=== PATIENT | male | born 1955 | race Caucasian/White ===

== ENCOUNTER 2019-09-13 00:20 | Day surgery (SDC) | payer OTHER, SELFPAY ==
[2019-09-09 15:07] VITALS: BMI 26.2
--- NOTE | 2019-09-13 07:21 | PM.HPGS ---
History of Present Illness History of Present Illness Consent: Risks, benefits, and alternatives have been discussed and questions answered. Patient agrees to proceed with procedure. Chief complaint: Neoplasm Screening Narrative: Rajiv Rae is a 64 year old W male referred for screening colonoscopy secondary to history of colonic polyps. Patient states he had a colonoscopy 10 years ago which time polyps were removed. She had another colonoscopy approximately 5 years ago no polyps were seen. Patient is asymptomatic. There is no family history of colon cancer. Patient is asymptomatic. [facility] Past Medical History Medical History (Updated 09/13/19 @ 07:22 by Rigo Taylor MD) Dyslipidemia Family History Family History (Updated 10/13/17 @ 14:27 by DOCTOR UNKNOWN) Father Hypertension Family history of elevated blood lipids Mother Hypertension Family history of elevated blood lipids Social History Social History Smoking status: Never smoker Alcohol intake: current Meds Home Medications and Allergies Home Medications Medication Instructions Recorded Confirmed Type quinapril 10 mg tablet 10 mg PO DAILY #90 tablet 07/18/19 09/09/19 Rx simvastatin 10 mg tablet 10 mg PO DAILY #90 tablet 08/06/19 09/09/19 Rx krill oil 500 mg PO DAILY 09/09/19 09/09/19 History Allergies Allergy/AdvReac Type Severity Reaction Status Date / Time Sulfa (Sulfonamide Allergy Unknown Skin Verified 09/09/19 15:04 Antibiotics) Reaction Exam Const: Orientation/consciousness: patient oriented x3 Resp: Auscultation: clear to auscultation bilaterally Cardio: Rate: regular rate Rhythm: regular rhythm Heart sounds: no murmurs GI: GI Palp: Yes Soft to palpation, No Tenderness to palpation present (GI), Yes No hepatosplenomegaly present and No Palpable mass present Auscultation: normal bowel sounds Neuro: General: patient oriented x3 and no focal motor deficits Extrem: General: no pedal edema Assessment and Plan Additional Plan screening colonoscopy secondary history of colonic polyps
[2019-09-13] MEDS: LACTATED RINGERS 1,000 ML 150 ML IV CONT (07:50)
[2019-09-13 07:52] VITALS: BP 122/75; PULSE 82; RESP 20; TEMP 36.9; O2SAT 99; BMI 25.3
--- NOTE | 2019-09-13 07:52 | WPDANESEPPF ---
Anes - Initial Pre Proc Eval Procedure: Operation Date: 09/13/19 08:30 Proposed Procedures p Screening Colonoscopy - Rigo Taylor MD Date/Time: 09/13/19 07:52 Surgeon: Rigo Taylor MD Pre Op Diagnosis: Neoplasm Screening Patient Data Age: 64 Gender: M Height: 6 ft 3 in Weight: 95 kg Allergies Allergy/AdvReac Type Severity Reaction Status Date / Time Sulfa (Sulfonamide Allergy Unknown Skin Verified 09/13/19 07:51 Antibiotics) Reaction Home Medications Medication Instructions Recorded Confirmed Type quinapril 10 mg tablet 10 mg PO DAILY #90 tablet 07/18/19 09/09/19 Rx simvastatin 10 mg tablet 10 mg PO DAILY #90 tablet 08/06/19 09/09/19 Rx krill oil 500 mg PO DAILY 09/09/19 09/09/19 History Patient hx anesthesia problems: none Family hx anesthesia problems: none PMFSH Past Medical History Medical History (Updated 09/13/19 @ 07:53 by Giovany Bridges MD) Dyslipidemia HTN (hypertension) Hyperlipidemia Family History Family History Father Hypertension Family history of elevated blood lipids Mother Hypertension Family history of elevated blood lipids Social History Social History Smoking status: Never smoker Alcohol intake: current Anes - Eval Final PreProcedure Day of Procedure 09/13/19 07:52 Patient weight: overweight Heart: regular rate and rhythm Lungs: clear to auscultation Airway: Mallampati scale class II Neurological: alert and oriented ASA classification: II Emergent: no Anesthetic plan: proceed Anesthesia type and monitoring: general GIVS and standard monitoring Informed Consent: The patient's anesthetic plan and its attendant risks and benefits were discussed with the patient/family/POA. Questions were solicited and answers provided to the satisfaction of the patient/family/POA.
[2019-09-13 08:49] VITALS: BP 102/72; PULSE 71; RESP 20; O2SAT 98
[2019-09-13 08:59] VITALS: BP 106/70; PULSE 74; RESP 20; O2SAT 100
[2019-09-13 09:09] VITALS: BP 121/72; PULSE 72; RESP 21; O2SAT 99
== END 2019-09-13 09:27 | disposition home or self-care (01) ==
PROVIDERS: PCP Family Medicine; Visit Provider Internal Medicine Gastroenterology
PROC: 0DJD8ZZ Inspection of Lower Intestinal Tract, Via Natural or Artificial Opening Endoscopic (ICD-10-PCS; CPT 45378; principal; 2019-09-13 08:30)
DX: Z12.11 Encounter for screening for malignant neoplasm of colon (principal); D12.3 Benign neoplasm of transverse colon; D12.5 Benign neoplasm of sigmoid colon; K64.8 Other hemorrhoids; K57.30 Diverticulosis of large intestine without perforation or abscess without bleeding; I10 Essential (primary) hypertension; E78.5 Hyperlipidemia, unspecified
CPT/HCPCS: 45385; 45380; 45381; 88305; J2704; J7120

== ENCOUNTER → 2020-02-18 16:24 | Outpatient (CLI) | payer OTHER, SELFPAY ==
--- NOTE | ~2020-02-18 | XR_ITS ---
EXAMINATION: XR shoulder RT min 2V DATE: 02/18/2020 16:42 INDICATION: Unspecified injury of right shoulder. TECHNIQUE: 4 views of right shoulder were obtained. COMPARISON: None. FINDINGS: Bone alignment is normal. No fracture. There is mild osteoarthritis of glenohumeral joint a nd severe osteoarthritis of acromioclavicular joint. IMPRESSION: 1. Polyarticular osteoarthritis. Reviewed, dictated and finalized at location A.
== END ==
PROVIDERS: Visit Provider Family Medicine
DX: S49.90XA Unspecified injury of shoulder and upper arm, unspecified arm, initial encounter (principal); M19.011 Primary osteoarthritis, right shoulder
CPT/HCPCS: 73030

== ENCOUNTER → 2020-03-18 07:30 | Outpatient (CLI) | payer OTHER, SELFPAY ==
--- NOTE | ~2020-03-18 | MR_ITS ---
EXAMINATION: MR shoulder RT wo con DATE: 03/18/2020 08:29 INDICATION: Right shoulder pain TECHNIQUE: Magnetic resonance imaging (MRI) of the right shoulder was performed without intravenous c ontrast. Sequences included axial PD-weighted FS FSE, coronal oblique PD-weighted FS FSE, coronal obl ique T2-weighted FS FSE, sagittal PD-weighted FS FSE, and sagittal T1-weighted SE. COMPARISON: None. FINDINGS: Coracoacromial arch: The acromion undersurface is curved in morphology (type II). The coracoacromial ligament is normal. M oderate acromioclavicular osteoarthritis with small inferiorly directed osteophytes. Rotator cuff: Mild supraspinatus and infraspinatus tendinopathy. There is a small split tear at the conjoined porti on of the distalmost supraspinatus and infraspinatus tendons which appears to originate posteriorly a t the articular surface and extend anteriorly across the majority the thickness of the tendon extendi ng to near but not definitively involving the articular surface. The tear measures <2 mm and AP width . Minimal subscapularis tendinopathy without tear. The teres minor tendon is normal. Normal rotator c uff muscle bulk and signal. Biceps tendon, glenoid labrum and glenohumeral cartilage: Long head of the biceps tendon is normal. There is a relatively well-defined linear tear extending pe ripherally into the substance of the superior labrum as well as the posterior labrum both which maint ain a relatively normal triangular shape. There is less well-defined labral degeneration with irregul ar frayed margins of the posterior superior and anteroinferior labrum, the latter with associated 8 x 2 x 3 mm paravertebral cyst. There is also degenerative tearing of the inferior labrum which appears diminutive. Partial-thickness cartilage loss involving greater than 50% the cartilage thickness with chondral surface irregularity along the glenoid. Additional partial thickness cartilage loss and cho ndral surface irregularity at the humeral head most severe at the superomedial and along the inferior margin where it also involves greater than 50% the cartilage thickness. There is mild subarticular e romain and cystic change at the posterior superior margin of the glenoid. Small marginal osteophytes ar e present along the glenoid. Fluid: Physiologic amount of fluid in the glenohumeral joint and biceps tendon sheath. Synovitis at the deep subscapular recess. No loose osteochondral bodies. Small amount of fluid in the subacromial/subdelto id bursa consistent with mild bursitis. Bones: Small low signal intensity bone island at the humeral head. No fracture or abnormal marrow replacing process. IMPRESSION: 1. Moderate right glenohumeral osteoarthritis with moderate to high-grade chondromalacia and diffuse labral tear/degeneration. 2. Mild rotator cuff tendinopathy with small near full thickness split tear at the distal conjoined p ortion of the supraspinatus and infraspinatus tendons which does appear to involve the articular surf giovanny. 3. Moderate acromioclavicular osteoarthritis with mild underlying stress subacromial/subdeltoid bursi tis. Reviewed, dictated and finalized at location A. IMPRESSION: 1. Moderate right glenohumeral osteoarthritis with moderate to high-grade chond romalacia and diffuse labral tear/degeneration. 2. Mild rotator cuff tendinopathy with small near full thickness split tear at the distal conjoined portion of the supraspinatus and infraspinatus tendons whi ch does appear to involve the articular surface. 3. Moderate acromioclavicular osteoarthritis with mild underlying stress subacr omial/subdeltoid bursitis.
== END ==
PROVIDERS: PCP Family Medicine; Visit Provider Orthopaedic Surgery
DX: M25.511 Pain in right shoulder (principal); M19.011 Primary osteoarthritis, right shoulder; M75.111 Incomplete rotator cuff tear or rupture of right shoulder, not specified as traumatic; M75.51 Bursitis of right shoulder
CPT/HCPCS: 73221

== ENCOUNTER → 2020-09-11 02:21 | Outpatient (CLI) | payer OTHER, SELFPAY ==
[2020-09-11 21:58] LABS: SARS-CoV-2 RNA PCR Negative
== END ==
PROVIDERS: PCP Family Medicine; Visit Provider Internal Medicine Gastroenterology
DX: Z01.812 Encounter for preprocedural laboratory examination (principal); Z20.822 Contact with and (suspected) exposure to COVID-19
CPT/HCPCS: C9803; U0003; U0005

== ENCOUNTER 2020-09-14 00:31 | Day surgery (SDC) | payer OTHER, SELFPAY ==
[2020-08-25 15:13] VITALS: BMI 26.2
--- NOTE | 2020-09-11 09:34 | WPDANESEPPF ---
Anes - Initial Pre Proc Eval Procedure: Operation Date: 09/14/20 09:30 Proposed Procedures p Esophagogastroduodenoscopy&Screen Colon - Enio Plata MD Date/Time: 09/11/20 09:34 Surgeon: Enio Plata MD Pre Op Diagnosis: GERD, hx of colon polyps Patient Data Age: 65 Gender: M Height: 1.91 m Weight: 95 kg Allergies Allergy/AdvReac Type Severity Reaction Status Date / Time Sulfa (Sulfonamide Allergy Unknown Skin Verified 09/14/20 08:18 Antibiotics) Reaction Home Medications Medication Instructions Recorded Confirmed Type krill oil 500 mg PO DAILY 09/09/19 08/25/20 History omeprazole 20 mg capsule,delayed See Rx Instructions .ROUTE 05/06/20 08/25/20 Rx release .COMPLEX #90 capsule quinapril 10 mg tablet See Rx Instructions .ROUTE 05/06/20 08/25/20 Rx .COMPLEX #90 tablet simvastatin 10 mg tablet See Rx Instructions .ROUTE 05/06/20 08/25/20 Rx .COMPLEX #90 tablet naproxen 500 mg tablet 500 mg PO BID PRN #60 tablet 08/21/20 08/25/20 Rx Patient hx anesthesia problems: none Family hx anesthesia problems: none PMFSH Past Medical History Medical History (Updated 09/11/20 @ 09:35 by Hermelindo Kidd DO) Adenomatous colon polyp Dyslipidemia GERD (gastroesophageal reflux disease) HTN (hypertension) Hyperlipidemia Family History Family History Father Hypertension Family history of elevated blood lipids Mother Hypertension Family history of elevated blood lipids Social History Social History Smoking packs per day: 0.5 Smoking cigarettes per day: 10.0 Years smoked: 8 Smoking pack-years: 4.00 Smoking status: Former smoker Tobacco type: cigarettes Smoking end date: 06/23/83 Alcohol intake: current Drinks per week: 6 Substance use type: does not use Living arrangements: with family Spiritual care concerns: No Anes - Eval Final PreProcedure Day of Procedure 09/11/20 09:34 Patient weight: overweight Heart: regular rate and rhythm Lungs: clear to auscultation and normal air movement Airway: Mallampati scale class III Neurological: alert and oriented Last oral intake: >/= 8 hours ASA classification: II Emergent: no Anesthetic plan: proceed Anesthesia type and monitoring: general GIVS and standard monitoring Informed Consent: The patient's anesthetic plan and its attendant risks and benefits were discussed with the patient/family/POA. Questions were solicited and answers provided to the satisfaction of the patient/family/POA.
[2020-09-14 08:19] VITALS: BP 130/84; PULSE 78; RESP 18; TEMP 36.4; O2SAT 99
[2020-09-14] MEDS: LACTATED RINGERS 1,000 ML 150 ML IV CONT (08:26)
--- NOTE | 2020-09-14 08:47 | PM.HPGS ---
History of Present Illness History of Present Illness Consent: Risks, benefits, and alternatives have been discussed and questions answered. Patient agrees to proceed with procedure. Chief complaint: GERD, hx of colon polyps Narrative: Rajiv Rae is a 65 year old male with gerd relatively controlled with omeprazole, also needs a repeat colonoscopy after polyp removed in piece-meal fashion 1 year go. Review of Systems Constitutional: Constitutional: Denies headache(s) and Denies weakness Eyes: Eyes: Denies blurry vision ENT: Reports Normal hearing present, Denies headache(s) and Denies neck pain Cardiovascular: Cardiovascular: Denies chest pain and Denies dyspnea Respiratory: Respiratory: Denies dyspnea Gastrointestinal: Gastrointestinal: Reports no additional gastrointestinal complaints Genitourinary: Genitourinary: Denies dysuria Musculoskeletal: Musculoskeletal: Denies neck pain Integumentary/Breasts: Skin/Breast: Denies dry skin Neurologic: Reports Normal hearing present, Denies headache(s) and Denies weakness Psychiatric: Psychiatric: Denies anxiety Endocrine: Endocrine: Denies change in body appearance Hematologic/Lymphatic: Hematologic/Lymphatic: Denies easy bleeding Allergic/Immunologic: Allergic/Immunologic: Denies urticaria [facility] Past Medical History Medical History (Updated 09/11/20 @ 09:35 by Hermelindo Kidd DO) Adenomatous colon polyp Dyslipidemia GERD (gastroesophageal reflux disease) HTN (hypertension) Hyperlipidemia Family History Family History Father Hypertension Family history of elevated blood lipids Mother Hypertension Family history of elevated blood lipids Social History Social History Smoking packs per day: 0.5 Smoking cigarettes per day: 10.0 Years smoked: 8 Smoking pack-years: 4.00 Smoking status: Former smoker Tobacco type: cigarettes Smoking end date: 06/23/83 Alcohol intake: current Drinks per week: 6 Substance use type: does not use Living arrangements: with family Spiritual care concerns: No Meds Home Medications and Allergies Home Medications Medication Instructions Recorded Confirmed Type krill oil 500 mg PO DAILY 09/09/19 08/25/20 History omeprazole 20 mg capsule,delayed See Rx Instructions .ROUTE 05/06/20 08/25/20 Rx release .COMPLEX #90 capsule quinapril 10 mg tablet See Rx Instructions .ROUTE 05/06/20 08/25/20 Rx .COMPLEX #90 tablet simvastatin 10 mg tablet See Rx Instructions .ROUTE 05/06/20 08/25/20 Rx .COMPLEX #90 tablet naproxen 500 mg tablet 500 mg PO BID PRN #60 tablet 08/21/20 08/25/20 Rx Allergies Allergy/AdvReac Type Severity Reaction Status Date / Time Sulfa (Sulfonamide Allergy Unknown Skin Verified 09/14/20 08:18 Antibiotics) Reaction Vital Signs Vital Signs - 24 hr 09/14/20 08:19 Temperature 97.6 F Pulse Rate 78 Respiratory Rate 18 Blood Pressure 130/84 Pulse Oximetry 99 Exam Const: General: comfortable and no acute distress HENMT: General nose exam: Normal nares present Eyes: General: appearance normal, both eyes and all related structures Neck: Neck: no JVD Resp: Auscultation: clear to auscultation bilaterally Cardio: Rate: regular rate Rhythm: regular rhythm GI: Inspection: non-distended GI Palp: Yes Soft to palpation Skin: General skin exam: normal color Neuro: General: gait normal Speech: normal speech Extrem: General: normal to inspection Psych: Mental Status: mental status grossly normal Assessment and Plan Assessment and plan (1) GERD (gastroesophageal reflux disease): Code(s): K21.9 - Gastro-esophageal reflux disease without esophagitis Status: Acute Assessment and Plan: egd, never had one, on ppi (2) Adenomatous colon polyp: Code(s): D12.6 - Benign neoplasm of colon, unspecified
[2020-09-14 09:31] VITALS: BP 115/79; PULSE 65; RESP 16; O2SAT 97
[2020-09-14 09:41] VITALS: BP 128/87; PULSE 66; RESP 20; O2SAT 98
[2020-09-14 10:00] VITALS: BP 120/86; PULSE 57; RESP 15; O2SAT 100
== END 2020-09-14 10:06 | disposition home or self-care (01) ==
PROVIDERS: PCP Family Medicine; Visit Provider Internal Medicine Gastroenterology
PROC: 0DJ08ZZ Inspection of Upper Intestinal Tract, Via Natural or Artificial Opening Endoscopic (ICD-10-PCS; CPT 43235; principal; 2020-09-14 09:30)
DX: Z12.11 Encounter for screening for malignant neoplasm of colon (principal); K63.5 Polyp of colon; D12.2 Benign neoplasm of ascending colon; D12.3 Benign neoplasm of transverse colon; K21.9 Gastro-esophageal reflux disease without esophagitis; K44.9 Diaphragmatic hernia without obstruction or gangrene; K57.30 Diverticulosis of large intestine without perforation or abscess without bleeding; K64.8 Other hemorrhoids; E78.5 Hyperlipidemia, unspecified; I10 Essential (primary) hypertension; Z87.891 Personal history of nicotine dependence
CPT/HCPCS: 45385; 45380; 43239; 88305; C9803; J2001; J2704; J7120; U0003; U0005

== ENCOUNTER → 2020-10-26 12:08 | Outpatient (CLI) | payer OTHER, SELFPAY ==
--- NOTE | ~2020-10-26 | XR_ITS ---
EXAMINATION: XR elbow RT min 3V DATE: 10/26/2020 12:28 INDICATION: Right elbow pain and swelling TECHNIQUE: Anteroposterior, two oblique and lateral views of the right elbow were obtained. COMPARISON: None. FINDINGS: No traumatic malalignment. No fracture. Osteoarthritis with severe joint space narrowing at the radio capitellar articulation of the right elbow. A severe nonuniform joint space narrowing at the proximal radioulnar and ulnar trochlear articulations. Marginal osteophytes are also present. There are 3 cor ticated ossicles along the medial margin of the medial humeral condyle in the region of the medial co llateral ligament complex and common flexor tendon wad which could be either degenerative loose jagruti s, enthesopathic ossification or heterotopic ossicles related to chronic soft tissue injury. No right elbow joint effusion. Soft tissues are unremarkable. IMPRESSION: 1. 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 No acute osseous abnormality. 2. Several ossicles at the medial side of the elbow which could be either degenerative loose bodies, enthesopathic ossification or heterotopic ossicles related to chronic injury to the medial collateral ligament complex and/or flexor tendon wad. Reviewed, dictated and finalized at location B. IMPRESSION: 1. 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 No acute osseous abnormality. 2. Several ossicles at the medial side of the elbow which could be either degen erative loose bodies, enthesopathic ossification or heterotopic ossicles relate d to chronic injury to the medial collateral ligament complex and/or flexor ten don wad.
== END ==
PROVIDERS: PCP Family Medicine; Visit Provider Family Medicine
DX: M19.021 Primary osteoarthritis, right elbow (principal)
CPT/HCPCS: 73080

== ENCOUNTER 2021-09-03 02:54 | Day surgery (SDC) | payer OTHER, SELFPAY ==
[2021-08-23 14:50] VITALS: BMI 26.9
--- NOTE | 2021-09-02 13:02 | WPDANESEPPF ---
Anes - Initial Pre Proc Eval Procedure: Operation Date: 09/03/21 11:00 Proposed Procedures p Screening Colonoscopy - Enio Plata MD Date/Time: 09/02/21 13:02 Surgeon: Enio Plata MD Pre Op Diagnosis: hx of colon polyps, neoplasm screening Patient Data Age: 66 Gender: M Height: 1.88 m Weight: 95 kg Allergies Allergy/AdvReac Type Severity Reaction Status Date / Time Sulfa (Sulfonamide Allergy Unknown Skin Verified 06/28/21 09:56 Antibiotics) Reaction Home Medications Medication Instructions Recorded Confirmed Type krill oil 500 mg PO DAILY 09/09/19 09/03/21 History omeprazole 20 mg capsule,delayed See Rx Instructions .ROUTE 05/06/20 09/03/21 Rx release .COMPLEX #90 capsule quinapril 10 mg tablet See Rx Instructions .ROUTE 05/11/21 09/03/21 Rx .COMPLEX #90 tablet simvastatin 10 mg tablet See Rx Instructions .ROUTE 05/11/21 09/03/21 Rx .COMPLEX #90 tablet diclofenac sodium 75 mg 75 mg PO BID PRN #60 tablet 06/28/21 09/03/21 Rx tablet,delayed release sildenafil 100 mg tablet 100 mg PO DAILY PRN #10 tablet 06/28/21 09/03/21 Rx Patient hx anesthesia problems: none Family hx anesthesia problems: none Results Review: All pre-operative results and documents have been reviewed as part of the pre-operative evaluation. [facility] Past Medical History Medical History Adenomatous colon polyp Dyslipidemia GERD (gastroesophageal reflux disease) Hepatitis C antibody test negative (04/11/17) HTN (hypertension) Hyperlipidemia Family History Family History Father Hypertension Family history of elevated blood lipids Mother Hypertension Family history of elevated blood lipids Social History Social History Smoking packs per day: 0.5 Smoking cigarettes per day: 10.0 Years smoked: 8 Smoking pack-years: 4.00 Smoking status: Former smoker Tobacco type: cigars Additional smoking assessment comments: quit smoking 37 years ago Alcohol intake: current Drinks per week: 9 Alcohol use details: socially Substance use type: does not use Living arrangements: with family Gender identity (if verbalized by the patient): Male Spiritual care concerns: No Anes - Eval Final PreProcedure Day of Procedure 09/02/21 13:02 Patient weight: overweight Heart: regular rate and rhythm Lungs: clear to auscultation and normal air movement Airway: Mallampati scale class II Neurological: alert and oriented Last oral intake: >/= 8 hours ASA classification: II Emergent: no Anesthetic plan: proceed Anesthesia type and monitoring: general GIVS and standard monitoring Results Review: All pre-operative results and documents have been reviewed as part of the pre-operative evaluation. Informed Consent: The patient's anesthetic plan and its attendant risks and benefits were discussed with the patient/family/POA. Questions were solicited and answers provided to the satisfaction of the patient/family/POA.
[2021-09-03 09:54] VITALS: BP 125/92; PULSE 84; RESP 18; TEMP 36.7; O2SAT 100; BMI 26.1
[2021-09-03] MEDS: LACTATED RINGERS 1,000 ML 150 ML IV CONT (10:06)
--- NOTE | 2021-09-03 10:40 | PM.HPGS ---
History of Present Illness History of Present Illness Consent: Risks, benefits, and alternatives have been discussed and questions answered. Patient agrees to proceed with procedure. Chief complaint: hx of colon polyps, neoplasm screening Narrative: Rajiv Rae is a 66 year old male with previous piecemeal polypectomy in transverse in 2019, repeat colonoscopy 2020 showed remnant polyp Review of Systems Constitutional: Constitutional: Denies headache(s) and Denies weakness Eyes: Eyes: Denies blurry vision ENT: Reports Normal hearing present, Denies headache(s) and Denies neck pain Cardiovascular: Cardiovascular: Denies chest pain and Denies dyspnea Respiratory: Respiratory: Denies dyspnea Gastrointestinal: Gastrointestinal: Reports no additional gastrointestinal complaints Genitourinary: Genitourinary: Denies dysuria Musculoskeletal: Musculoskeletal: Denies neck pain Integumentary/Breasts: Skin/Breast: Denies dry skin Neurologic: Reports Normal hearing present, Denies headache(s) and Denies weakness Psychiatric: Psychiatric: Denies anxiety Endocrine: Endocrine: Denies change in body appearance Hematologic/Lymphatic: Hematologic/Lymphatic: Denies easy bleeding Allergic/Immunologic: Allergic/Immunologic: Denies urticaria PMFSH Past Medical History Medical History Adenomatous colon polyp Dyslipidemia GERD (gastroesophageal reflux disease) Hepatitis C antibody test negative (04/11/17) HTN (hypertension) Hyperlipidemia Family History Family History Father Hypertension Family history of elevated blood lipids Mother Hypertension Family history of elevated blood lipids Social History Social History Smoking packs per day: 0.5 Smoking cigarettes per day: 10.0 Years smoked: 8 Smoking pack-years: 4.00 Smoking status: Former smoker Tobacco type: cigars Additional smoking assessment comments: quit smoking 37 years ago Alcohol intake: current Drinks per week: 9 Alcohol use details: socially Substance use type: does not use Living arrangements: with family Gender identity (if verbalized by the patient): Male Spiritual care concerns: No Meds Home Medications and Allergies Home Medications Medication Instructions Recorded Confirmed Type krill oil 500 mg PO DAILY 09/09/19 09/03/21 History omeprazole 20 mg capsule,delayed See Rx Instructions .ROUTE 05/06/20 09/03/21 Rx release .COMPLEX #90 capsule quinapril 10 mg tablet See Rx Instructions .ROUTE 05/11/21 09/03/21 Rx .COMPLEX #90 tablet simvastatin 10 mg tablet See Rx Instructions .ROUTE 05/11/21 09/03/21 Rx .COMPLEX #90 tablet diclofenac sodium 75 mg 75 mg PO BID PRN #60 tablet 06/28/21 09/03/21 Rx tablet,delayed release sildenafil 100 mg tablet 100 mg PO DAILY PRN #10 tablet 06/28/21 09/03/21 Rx Allergies Allergy/AdvReac Type Severity Reaction Status Date / Time Sulfa (Sulfonamide Allergy Unknown Skin Verified 06/28/21 09:56 Antibiotics) Reaction Vital Signs Vital Signs - 24 hr 09/03/21 09:54 Temperature 98.0 F Pulse Rate 84 Respiratory Rate 18 Blood Pressure 125/92 H Pulse Oximetry 100 Exam Const: General: comfortable and no acute distress HENMT: General nose exam: Normal nares present Eyes: General: appearance normal, both eyes and all related structures Neck: Neck: no JVD Resp: Auscultation: clear to auscultation bilaterally Cardio: Rate: regular rate Rhythm: regular rhythm GI: Inspection: non-distended GI Palp: Yes Soft to palpation Skin: General skin exam: normal color Neuro: General: gait normal Speech: normal speech Extrem: General: normal to inspection Psych: Mental Status: mental status grossly normal Assessment and Plan Assessment and plan (1) Adenomatous colon polyp:
[2021-09-03 11:18] VITALS: BP 120/76; PULSE 87; RESP 18; O2SAT 98
[2021-09-03 11:28] VITALS: BP 117/72; PULSE 84; RESP 18; O2SAT 99
[2021-09-03 11:38] VITALS: BP 142/88; PULSE 60; RESP 18; O2SAT 99
== END 2021-09-03 12:00 | disposition home or self-care (01) ==
PROVIDERS: PCP Family Medicine; Visit Provider Internal Medicine Gastroenterology
PROC: 0DJD8ZZ Inspection of Lower Intestinal Tract, Via Natural or Artificial Opening Endoscopic (ICD-10-PCS; CPT 45378; principal; 2021-09-03 11:00)
DX: Z09 Encounter for follow-up examination after completed treatment for conditions other than malignant neoplasm (principal); D12.2 Benign neoplasm of ascending colon; D12.3 Benign neoplasm of transverse colon; K57.30 Diverticulosis of large intestine without perforation or abscess without bleeding; K64.8 Other hemorrhoids; K63.5 Polyp of colon; E78.5 Hyperlipidemia, unspecified; K21.9 Gastro-esophageal reflux disease without esophagitis; I10 Essential (primary) hypertension; Z87.891 Personal history of nicotine dependence
CPT/HCPCS: 45388; 45385; 88305; J2704; J7120

== ENCOUNTER 2022-09-16 01:44 | Day surgery (SDC) | payer OTHER, SELFPAY ==
[2022-09-02 13:18] VITALS: BMI 26.2
[2022-09-16 06:17] VITALS: BP 111/78; PULSE 79; RESP 16; TEMP 36.3; O2SAT 100
[2022-09-16] MEDS: LACTATED RINGERS 1,000 ML 150 ML IV CONT (06:27)
--- NOTE | 2022-09-16 07:22 | WPDANESEPPF ---
Anes - Initial Pre Proc Eval Procedure: Operation Date: 09/16/22 07:30 Proposed Procedures p Screening Colonoscopy - Enio Plata MD Date/Time: 09/16/22 07:22 Surgeon: Enio Plata MD Pre Op Diagnosis: Hx of colon polyp Patient Data Age: 67 Gender: M Height: 1.91 m Weight: 93.6 kg Last Vital Signs Temp 97.3 F L 09/16/22 06:17 Pulse 79 09/16/22 06:17 Resp 16 09/16/22 06:17 BP 111/78 09/16/22 06:17 Pulse Ox 100 09/16/22 06:17 O2 Del Method Room Air 09/16/22 06:17 Allergies Allergy/AdvReac Type Severity Reaction Status Date / Time Sulfa (Sulfonamide Allergy Unknown Skin Verified 09/16/22 06:16 Antibiotics) Reaction Home Medications Medication Instructions Recorded Confirmed Type krill oil 500 mg capsule 500 mg PO DAILY 09/09/19 09/02/22 History omeprazole 20 mg capsule,delayed See Rx Instructions .Route 02/08/22 09/02/22 Rx release .COMPLEX #90 caps sildenafil 100 mg tablet 100 mg PO DAILY PRN sexual 02/08/22 09/02/22 Rx activity #10 tabs simvastatin 10 mg tablet See Rx Instructions .Route 02/08/22 09/02/22 Rx .COMPLEX #90 tabs levothyroxine 25 mcg tablet 25 mcg PO DAILY #90 tabs 05/16/22 09/02/22 Rx lisinopril 10 mg tablet 10 mg PO DAILY #90 tabs 08/08/22 09/02/22 Rx Patient hx anesthesia problems: none Family hx anesthesia problems: none Results Review: All pre-operative results and documents have been reviewed as part of the pre-operative evaluation. [facility] Past Medical History Medical History Adenomatous colon polyp Dyslipidemia GERD (gastroesophageal reflux disease) Hepatitis C antibody test negative (04/11/17) HTN (hypertension) Hyperlipidemia Family History Family History Father Hypertension Family history of elevated blood lipids Mother Hypertension Family history of elevated blood lipids Social History Social History Smoking packs per day: 0.5 Smoking cigarettes per day: 10.0 Years smoked: 8 Smoking pack-years: 4.00 Smoking status: Former smoker Tobacco type: cigarettes Additional smoking assessment comments: quit smoking 37 years ago Alcohol intake: current Drinks per week: 6 Alcohol use details: socially Substance use type: does not use Lack of Transportation: No Lack of Food: Never True Current Housing: I Have Housing Concerned About Future Housing: No Difficulty Paying Gas/Electric Bills: No Difficulty Paying for Meds: No Currently Unemployed: No Education: High School Diploma/GED Difficulty w/ Childcare or Family Care: No Living arrangements: with family Gender identity (if verbalized by the patient): Male Spiritual care concerns: No Anes - Eval Final PreProcedure Day of Procedure 09/16/22 07:22 Patient weight: obese Heart: regular rate and rhythm Lungs: clear to auscultation Neurological: alert and oriented Last oral intake: >/= 8 hours Emergent: no Anesthetic plan: proceed Anesthesia type and monitoring: general GIVS and standard monitoring Results Review: All pre-operative results and documents have been reviewed as part of the pre-operative evaluation. Informed Consent: The patient's anesthetic plan and its attendant risks and benefits were discussed with the patient/family/POA. Questions were solicited and answers provided to the satisfaction of the patient/family/POA.
--- NOTE | 2022-09-16 07:25 | PM.HPGS ---
History of Present Illness History of Present Illness Consent: Risks, benefits, and alternatives have been discussed and questions answered. Patient agrees to proceed with procedure. Chief complaint: Hx of colon polyp Narrative: Rajiv Rae is a 67 year old male previous piecemeal polypectomy in transverse in 2019, repeat colonoscopy 2020 and then 2021 showed remnant polyp Review of Systems Constitutional: Constitutional: Denies headache(s) and Denies weakness Eyes: Eyes: Denies blurry vision ENT: Reports Normal hearing present, Denies headache(s) and Denies neck pain Cardiovascular: Cardiovascular: Denies chest pain and Denies dyspnea Respiratory: Respiratory: Denies dyspnea Gastrointestinal: Gastrointestinal: Reports no additional gastrointestinal complaints Genitourinary: Genitourinary: Denies dysuria Musculoskeletal: Musculoskeletal: Denies neck pain Integumentary/Breasts: Skin/Breast: Denies dry skin Neurologic: Reports Normal hearing present, Denies headache(s) and Denies weakness Psychiatric: Psychiatric: Denies anxiety Endocrine: Endocrine: Denies change in body appearance Hematologic/Lymphatic: Hematologic/Lymphatic: Denies easy bleeding Allergic/Immunologic: Allergic/Immunologic: Denies urticaria PMFSH Past Medical History Medical History Adenomatous colon polyp Dyslipidemia GERD (gastroesophageal reflux disease) Hepatitis C antibody test negative (04/11/17) HTN (hypertension) Hyperlipidemia Family History Family History Father Hypertension Family history of elevated blood lipids Mother Hypertension Family history of elevated blood lipids Social History Social History Smoking packs per day: 0.5 Smoking cigarettes per day: 10.0 Years smoked: 8 Smoking pack-years: 4.00 Smoking status: Former smoker Tobacco type: cigarettes Additional smoking assessment comments: quit smoking 37 years ago Alcohol intake: current Drinks per week: 6 Alcohol use details: socially Substance use type: does not use Lack of Transportation: No Lack of Food: Never True Current Housing: I Have Housing Concerned About Future Housing: No Difficulty Paying Gas/Electric Bills: No Difficulty Paying for Meds: No Currently Unemployed: No Education: High School Diploma/GED Difficulty w/ Childcare or Family Care: No Living arrangements: with family Gender identity (if verbalized by the patient): Male Spiritual care concerns: No Meds Home Medications and Allergies Home Medications Medication Instructions Recorded Confirmed Type krill oil 500 mg capsule 500 mg PO DAILY 09/09/19 09/02/22 History omeprazole 20 mg capsule,delayed See Rx Instructions .Route 02/08/22 09/02/22 Rx release .COMPLEX #90 caps sildenafil 100 mg tablet 100 mg PO DAILY PRN sexual 02/08/22 09/02/22 Rx activity #10 tabs simvastatin 10 mg tablet See Rx Instructions .Route 02/08/22 09/02/22 Rx .COMPLEX #90 tabs levothyroxine 25 mcg tablet 25 mcg PO DAILY #90 tabs 05/16/22 09/02/22 Rx lisinopril 10 mg tablet 10 mg PO DAILY #90 tabs 08/08/22 09/02/22 Rx Allergies Allergy/AdvReac Type Severity Reaction Status Date / Time Sulfa (Sulfonamide Allergy Unknown Skin Verified 09/16/22 06:16 Antibiotics) Reaction Vital Signs Vital Signs - 24 hr 09/16/22 06:17 Temperature 97.3 F L Pulse Rate 79 Respiratory Rate 16 Blood Pressure 111/78 Pulse Oximetry 100 Oxygen Delivery Room Air Exam Const: General: comfortable and no acute distress HENMT: Face/Nose/Sinus: Normal nares present Eyes: General: appearance normal, both eyes and all related structures Neck: Neck: no JVD Resp: Auscultation: clear to auscultation bilaterally Cardio: Rate: regular rate Rhythm: regular rhythm GI: Inspection: non-dist
[2022-09-16 07:46] VITALS: BP 100/67; PULSE 70; RESP 19; O2SAT 100
[2022-09-16 07:56] VITALS: BP 110/80; PULSE 63; RESP 22; O2SAT 100
[2022-09-16 08:06] VITALS: BP 110/79; PULSE 58; RESP 13; O2SAT 100
== END 2022-09-16 08:10 | disposition home or self-care (01) ==
PROVIDERS: PCP Family Medicine; Visit Provider Internal Medicine Gastroenterology
PROC: 0DJD8ZZ Inspection of Lower Intestinal Tract, Via Natural or Artificial Opening Endoscopic (ICD-10-PCS; CPT 45378; principal; 2022-09-16 07:30)
DX: Z09 Encounter for follow-up examination after completed treatment for conditions other than malignant neoplasm (principal); D12.3 Benign neoplasm of transverse colon; K57.30 Diverticulosis of large intestine without perforation or abscess without bleeding; K64.8 Other hemorrhoids; I10 Essential (primary) hypertension; E78.5 Hyperlipidemia, unspecified; K21.9 Gastro-esophageal reflux disease without esophagitis; Z87.891 Personal history of nicotine dependence
CPT/HCPCS: 45385; 88305; J2704; J7120

== ENCOUNTER 2023-05-31 08:33 | Outpatient (CLI) | payer OTHER, SELFPAY ==
--- NOTE | ~2023-05-31 | XR_ITS ---
Left wrist Technique: PA, oblique, lateral, and ulnar deviation views were obtained. Clinical History: Ulnar nerve lesion Findings: No acute fracture or dislocation is seen. Suggestion of chronic, nonunited fracture of the scaphoid waist. There is mild degenerative change of the scaphoid articulations. Remaining joint spac es are preserved. Soft tissues are unremarkable. 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 No degenerative changes of th e STT indications. No definite acute fracture or dislocation seen. Reviewed, dictated and finalized at location M. 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 No dege nerative changes of the STT indications. No definite acute fracture or dislocation seen.
--- NOTE | ~2023-05-31 | XR_ITS ---
Left elbow Technique: AP, oblique, and lateral views were obtained. Clinical History: Paresthesia Findings: No acute fracture or dislocation is seen. Osseous alignment is anatomic. Joint spaces are p reserved. There is minimal spurring of the coronoid process of the ulna. There is no displacement of the fat pads, and soft tissues are unremarkable. Impression: Minimal spurring of the coronoid process of the ulna. Reviewed, dictated and finalized at location M. EMBRYOLOGIST Impression: Minimal spurring of the coronoid process of the ulna.
== END 2023-05-31 08:34 | disposition home or self-care (01) ==
PROVIDERS: PCP Family Medicine; Visit Provider Plastic Surgery
DX: G56.02 Carpal tunnel syndrome, left upper limb (principal); G56.22 Lesion of ulnar nerve, left upper limb; M25.722 Osteophyte, left elbow
CPT/HCPCS: 73080; 73110

== ENCOUNTER 2023-06-26 08:49 | Outpatient (CLI) | payer OTHER, SELFPAY ==
--- NOTE | 2023-06-26 09:30 | NEURO_ITS ---
Impression: # Patient reports a history of paresthesias in left hand. # Left, mild Carpal Tunnel Syndrome. # Normal needle/EMG exam. # Clinical correlation recommended. Nerve Conduction Studies Anti Sensory Summary Table Stim Site NR Peak (ms) P-T Amp (?V) Site1 Site2 Delta-P (ms) Dist (cm) Noam (m/s) Left Median Anti Sensory (2-3nd Digit) Wrist 4.8 22.3 Wrist 2-3nd Digit 4.8 14.0 29 Wrist 4.8 26.2 Wrist 2-3nd Digit 4.8 14.0 29 Left Radial Anti Sensory (Base 1st Digit) Wrist 1.9 23.1 Wrist Base 1st Digit 1.9 0.0 Left Ulnar Anti Sensory (5th Digit) Wrist 2.5 42.2 Wrist 5th Digit 2.5 14.0 56 Motor Summary Table Stim Site NR Onset (ms) O-P Amp (mV) Site1 Site2 Delta-0 (ms) Dist (cm) Noam (m/s) Left Median Motor (Abd Poll Brev) Wrist 4.1 4.7 Elbow Wrist 5.3 26.0 49 Elbow 9.4 4.0 Left Ulnar Motor (Abd Dig Minimi) Wrist 2.6 6.1 A Elbow Wrist 6.2 32.0 52 A Elbow 8.8 4.9 B Elbow Wrist 4.1 22.0 54 B Elbow 6.7 5.1 F Wave Studies NR F-Lat (ms) L-R F-Lat (ms) Left Median (Mrkrs) (Abd Poll Brev) 32.19 Left Ulnar (Mrkrs) (Abd Dig Min) 33.03 EMG Side Muscle Nerve Root Ins Act Fibs Amp Dur Recrt Comment Left 1stDorInt Ulnar C8-T1 Nml Nml Nml Nml Nml Left Ext Indicis Radial (Post Int) C7-8 Nml Nml Nml Nml Nml Left Ext Digitorum Radial (Post Int) C7-8 Nml Nml Nml Nml Nml Left BrachioRad Radial C5-6 Nml Nml Nml Nml Nml Left PronatorTeres Median C6-7 Nml Nml Nml Nml Nml Left Abd Poll Brev Median C8-T1 Nml Nml Nml Nml Nml MTDD
== END 2023-06-26 08:50 | disposition home or self-care (01) ==
PROVIDERS: PCP Family Medicine; Visit Provider Plastic Surgery
DX: G56.02 Carpal tunnel syndrome, left upper limb (principal)
CPT/HCPCS: 95886; 95909

== ENCOUNTER 2023-08-28 09:44 | Outpatient (CLI) | payer OTHER, SELFPAY ==
--- NOTE | 2023-08-28 09:51 | ECG_ITS ---
Measurements Intervals [place] Rate: 69 P: 49 LA: 177 QRS: -17 QRSD: 96 T: 30 QT: 381 QTc: 410 Interpretive Statements SINUS RHYTHM NORMAL ELECTROCARDIOGRAM NO PREVIOUS ECG AVAILABLE FOR COMPARISON Electronically Signed On 08-28-2023 16:50:33 PROFESSOR OF PHYSICAL EDUCATION by Andrez Cantu M.D.
== END 2023-08-28 09:45 | disposition home or self-care (01) ==
LOC: ANHCARD 09:47
PROVIDERS: PCP Family Medicine; Visit Provider Student in an Organized Health Care Education/Training Program
DX: I10 Essential (primary) hypertension (principal); Z01.818 Encounter for other preprocedural examination
CPT/HCPCS: 93005

== ENCOUNTER 2023-08-31 06:17 | Day surgery (SDC) | payer OTHER, SELFPAY ==
--- NOTE | 2023-08-30 11:41 | WPDANESEPPF ---
Anes - Initial Pre Proc Eval Procedure: Operation Date: 08/31/23 08:00 Proposed Procedures p Left Endoscopic Carpal Tunnel Release, Possible Open Carpal Tunnel Release - Lucy Arizmendi MD Date/Time: 08/30/23 11:41 Surgeon: Lucy Arizmendi MD Pre Op Diagnosis: Carpal Tunnel Syndrome Left Wrist Patient Data Age: 68 Gender: M Height: 1.88 m Weight: 98.88 kg Allergies Allergy/AdvReac Type Severity Reaction Status Date / Time Sulfa (Sulfonamide Allergy Unknown Rash Verified 08/31/23 06:48 Antibiotics) Home Medications Medication Instructions Recorded Confirmed Type krill oil 500 mg capsule 500 mg PO DAILY 09/09/19 08/31/23 History lisinopril 10 mg tablet 10 mg PO DAILY #90 tabs 01/09/23 08/31/23 Rx sildenafil 100 mg tablet 100 mg PO DAILY PRN sexual 04/20/23 08/31/23 Rx activity #18 tabs levothyroxine 50 mcg tablet 50 mcg PO DAILY #90 tabs 05/19/23 08/31/23 Rx omeprazole 20 mg capsule,delayed See Rx Instructions .Route 06/26/23 08/31/23 Rx release .COMPLEX #90 caps simvastatin 10 mg tablet See Rx Instructions .Route 06/26/23 08/31/23 Rx .COMPLEX #90 tabs naproxen 500 mg tablet See Rx Instructions .Route 08/14/23 08/31/23 Rx .COMPLEX #90 tabs tramadol 50 mg tablet 50 mg PO Q6H PRN pain #10 tabs 08/31/23 Rx Patient hx anesthesia problems: none Family hx anesthesia problems: none Results Review: All pre-operative results and documents have been reviewed as part of the pre-operative evaluation. [facility] Past Medical History Medical History Adenomatous colon polyp Dyslipidemia GERD (gastroesophageal reflux disease) Hepatitis C antibody test negative (04/11/17) HTN (hypertension) Hyperlipidemia Family History Family History Father Hypertension Family history of elevated blood lipids Mother Hypertension Family history of elevated blood lipids Social History Social History Smoking packs per day: 0.5 Smoking cigarettes per day: 10.0 Years smoked: 8 Smoking pack-years: 4.00 Smoking status: Former smoker Tobacco type: cigarettes Additional smoking assessment comments: quit smoking 37 years ago Alcohol intake: current Drinks per week: 10 Alcohol use details: drinks 3-4 days per week, 3-4 drinkls on those days Substance use: never Substance use type: does not use Lack of Transportation: No Lack of Food: Never True Current Housing: I Have Housing Concerned About Future Housing: No Difficulty Paying Gas/Electric Bills: No Difficulty Paying for Meds: No Currently Unemployed: No Education: High School Diploma/GED Difficulty w/ Childcare or Family Care: No Living arrangements: with family Gender identity (if verbalized by the patient): Male Spiritual care concerns: No Anes - Eval Final PreProcedure Day of Procedure 08/30/23 11:41 Patient weight: overweight Heart: regular rate and rhythm Lungs: decreased breath sounds Airway: Mallampati scale class II Neurological: alert and oriented Last oral intake: >/= 8 hours ASA classification: III Emergent: no Anesthetic plan: proceed Anesthesia type and monitoring: general GIVS and standard monitoring Results Review: All pre-operative results and documents have been reviewed as part of the pre-operative evaluation. Informed Consent: The patient's anesthetic plan and its attendant risks and benefits were discussed with the patient/family/POA. Questions were solicited and answers provided to the satisfaction of the patient/family/POA.
--- NOTE | 2023-08-31 06:58 | WPDHPUPDATE1 ---
History and Physical Update Update Date/Time: 08/31/23 06:58 Patient seen and examined in pre-operative holding area. No interval change in medical history or symptoms. Patient recalls previous discussion of benefits and alternatives to procedure. Continues to desire to proceed with left endoscopic possible open carpal tunnel release. Reviewed procedure, post-op expectations and risks including but not limited to bleeding, infection, injury to tendon/nerve/vessel, decreased hand function, stiffness, RSD, no change or worsening of symptoms. I discussed the possible use of assistants and their participation in the case. Patient stated understanding and signed the consent form wishing to proceed.
--- NOTE | 2023-08-31 06:59 | W.PM.PROC2 ---
Procedure Note - Detailed Date of Procedure 08/31/23 Pre-op Diagnosis Carpal Tunnel Syndrome Left Wrist Post-op Diagnosis Same Procedure Performed left endoscopic carpal tunnel release Surgeon Lucy Arizmendi MD Anesthesia MAC Description of Procedure INFORMED CONSENT: The patient was seen and examined and marked in the pre-op area.? The patient signed the consent form. PROCEDURE IN DETAIL:The patient taken back to OR on the stretcher in supine position. Time out performed with anesthesia, surgeon and staff agreeing on patient's name site and surgery to be performed SCDs were placed on the lower extremities and inflated. A tourniquet was placed on {left} upper extremity and antibiotics given IV After anesthesia administered sedation I injected {4}cc 1%lido with epi and 0.5% marcaine plain at the operative site The?{left upper extremity}?was prepped and draped in sterile fashion the??{left upper extremity} was? exsanguinated with Esmarch bandage and tourniquet inflated to 250mmHg I made a transverse incision in the {left} volar distal wrist crease through skin and dermis with 15 blade scalpel.? Littler scissors spread down to antebrachial fascia. A small incision was made in antebrachial fascia allowing access to Carpal tunnel. I proceeded with sequential dilation staying in line with the ring finger and hugging the hook of the hamate.? I then used the synovial elevator to free any adhesions from the underside of the transverse carpal ligament. Next I was able to insert the Microaire endoscopic carpal tunnel device with direct visualization of the transverse fibers on the monitor and proceeded with complete segmental retrograde release of the ligament in its entirety.? I irrigated with normal saline and closed with 4-0 monocryl for dermis and subcuticular closure. A dressing of Dermabond, 4x4, dinah, and a volar splint was applied for patient safety, security, and comfort and secured with an giovanny bandage after the tourniquet was let down noting the hand was warm and well perfused. The patient was then awaken from anesthesia and transferred to the recovery room in stable condition.? Complications - none EBL- 0cc Disposition - home in stable conditions [facility] [place] Billing Surgery - Charge Forward: Surgery Billing ([id number])
[2023-08-31 07:02] VITALS: BP 129/85; PULSE 68; RESP 18; TEMP 37; O2SAT 99; BMI 27.3
[2023-08-31] MEDS: LACTATED RINGERS 1,000 ML 30 ML IV CONT (07:19)
[2023-08-31] MEDS: BUPivacaine HCL 0.5% 10 ML AMP INFILTRATE (08:15)
[2023-08-31 08:43] VITALS: BP 101/70; PULSE 70; RESP 16; O2SAT 99
[2023-08-31 09:03] VITALS: BP 114/71; PULSE 62; RESP 18; O2SAT 95
--- NOTE | 2023-08-31 09:17 | WPDANESPN ---
Anes - Prog Note Post-Op Date/Time: 08/31/23 09:17 Cardiovascular status: normal Respiratory status: normal Airway patency: baseline Mental status: baseline Post-Op hydration status: normal Vital Signs: Last Vital Signs Temp 37.0 C 08/31/23 07:02 Pulse 62 08/31/23 09:03 Resp 18 08/31/23 09:03 BP 114/71 08/31/23 09:03 Pulse Ox 95 08/31/23 09:03 O2 Del Method Room Air 08/31/23 09:03 Pain Score (VAS): 0 I/O: Intake & Output 08/30/23 08/31/23 08/31/23 23:59 07:59 15:59 Intake Total 100 Balance 100 Patient Feedback: Patient satisfied with anesthetic care.
[2023-08-31] MEDS: LIDO 1%/EPINEPHRINE 1:100,000 20 ML VIAL INFILTRATE (10:19)
== END 2023-08-31 09:20 | disposition home or self-care (01) ==
PROVIDERS: PCP Family Medicine; Visit Provider Plastic Surgery
PROC: 01N54ZZ Release Median Nerve, Percutaneous Endoscopic Approach (ICD-10-PCS; CPT 29848; principal; 2023-08-31 08:00)
DX: G56.02 Carpal tunnel syndrome, left upper limb (principal)
CPT/HCPCS: 29848

== ENCOUNTER 2024-03-07 14:35 | Outpatient (CLI) | payer OTHER, SELFPAY ==
[2024-03-07 17:59] LABS: Hematocrit 39.1 % (42.0-52.0); Hemoglobin 13.1 g/dL (14.0-18.0); Mean Corpuscular HGB Conc 33.5 g/dl (32-36); Mean Corpuscular Hemoglobin 32.5 pg (26-34); Mean Platelet Volume 8.8 fl (7.4-10.4); Platelet Count Result 213 k/mm3 (150-375); Red Blood Count 4.03 M/mm3 (4.6-6.20); Red Cell Distribution Width 13.6 % (11.5-14.5); White Blood Count 18.5 K/mm3 (4.5-10.0)
[2024-03-07 18:09] LABS: Alanine Aminotransferase 25 U/L (6-50); Albumin Level 3.7 g/dL (3.5-5.1); Alkaline Phosphatase 88 U/L (38-126); Anion Gap 10 mmol/L (4-12); Aspartate Amino Transferase 53 U/L (17-59); Bilirubin,Total 0.5 mg/dL (0.2-1.3); Blood Urea Nitrogen 18 mg/dL (9-20); Calcium 9.2 mg/dL (8.4-10.2); Carbon Dioxide 22 mmol/L (22-30); Chloride 100 mmol/L (98-107); Estimated Glomerular Filt Rate > 60; Glucose 135 mg/dL (65-110); Sodium 132 mmol/L (137-145)
[2024-03-07 18:30] LABS: Influenza A QL RT-PCR Negative (Negative); Influenza B QL RT-PCR Negative (Negative); RSV RNA, RT-PCR Negative (Negative); SARS-CoV-2 RNA PCR Negative (Negative)
== END 2024-03-07 14:36 | disposition home or self-care (01) ==
LOC: ANHGOSHLAB 14:38
PROVIDERS: PCP Family Medicine; Visit Provider Nurse Practitioner
DX: R50.9 Fever, unspecified (principal)
CPT/HCPCS: 36415; 80053; 85027; 87637

== ENCOUNTER 2024-03-08 07:31 | Outpatient (CLI) | payer OTHER, SELFPAY ==
[2024-03-08 09:00] LABS: Immunochemical Fecal Occult Bl Positive (N)
[2024-03-08 09:01] LABS: IFOB Positive Control Positive
[2024-03-08 09:45] LABS: Toxigenic C. Diff NEGATIVE (NEGATIVE)
== END 2024-03-08 07:32 | disposition home or self-care (01) ==
PROVIDERS: PCP Family Medicine; Visit Provider Plastic Surgery
DX: R19.7 Diarrhea, unspecified (principal)
CPT/HCPCS: 36415; 82274; 87045; 87427; 87449; 87493

== ENCOUNTER 2024-03-08 11:21 | Outpatient (CLI) | payer OTHER, SELFPAY ==
--- NOTE | ~2024-03-08 | CT_ITS ---
EXAMINATION: CT abdomen pelvis w con DATE: 03/08/2024 11:51 INDICATION: Fever, unspecified. TECHNIQUE: Computed tomography (CT) of the abdomen and pelvis was performed with 100 mL Omnipaque 350 intravenous contrast. Automated exposure control and iterative reconstruction technique were employe d. The dose-length product was 834.14 mGy-cm. COMPARISON: None. FINDINGS: The visualized portions of the lung bases demonstrate airspace opacities and groundglass op acities in right middle lobe, right lower lobe, and left lower lobe, consistent with pneumonia. No pl eural effusion. The heart size is normal. No pericardial effusion. The liver, gallbladder, spleen, pa ncreas, adrenal glands, and kidneys are normal. There is diverticulosis of the colon without evidence of diverticulitis. There is a left inguinal hernia containing fat. The appendix is normal. There are no pathologically enlarged lymph nodes. There is no free intraperitoneal fluid. There is severe lumb ar spondylosis. IMPRESSION: 1. Bilateral pneumonia, right worse than left. Reviewed, dictated and finalized at location A.
== END 2024-03-08 11:22 | disposition home or self-care (01) ==
LOC: ANHIMG 11:24
PROVIDERS: PCP Family Medicine; Visit Provider Family Medicine
DX: J18.9 Pneumonia, unspecified organism (principal); R50.9 Fever, unspecified; R19.7 Diarrhea, unspecified; K92.1 Melena; D72.829 Elevated white blood cell count, unspecified
CPT/HCPCS: 36415; 74177; 82274; 87045; 87427; 87449; 87493; Q9967

== ENCOUNTER 2024-04-01 00:32 | Day surgery (SDC) | payer OTHER, SELFPAY ==
[2024-03-20 14:52] VITALS: BMI 26.9
[2024-04-01 11:42] VITALS: BP 123/89; PULSE 67; RESP 18; TEMP 36.6; O2SAT 100
[2024-04-01] MEDS: LACTATED RINGERS 1,000 ML 150 ML IV CONT (11:53)
--- NOTE | 2024-04-01 12:07 | WPDANESEPPF ---
Anes - Initial Pre Proc Eval Procedure: Operation Date: 04/01/24 13:00 Proposed Procedures p Colonoscopy - Enio Plata MD Date/Time: 04/01/24 12:07 Surgeon: Enio Plata MD Pre Op Diagnosis: colon polyp, melena, diarrhea, change bowel habit Patient Data Age: 69 Gender: M Height: 1.88 m Weight: 93.7 kg Last Vital Signs Temp 98 F 04/01/24 11:42 Pulse 67 04/01/24 11:42 Resp 18 04/01/24 11:42 BP 123/89 04/01/24 11:42 Pulse Ox 100 04/01/24 11:42 O2 Del Method Room Air 04/01/24 11:42 Allergies Allergy/AdvReac Type Severity Reaction Status Date / Time Sulfa (Sulfonamide Allergy Unknown Rash Verified 04/01/24 11:40 Antibiotics) Home Medications Medication Instructions Recorded Confirmed Type krill oil 500 mg capsule 500 mg PO DAILY 09/09/19 04/01/24 History lisinopril 10 mg tablet See Rx Instructions .Route 09/05/23 04/01/24 Rx .COMPLEX #90 tabs simvastatin 10 mg tablet See Rx Instructions .Route 11/21/23 04/01/24 Rx .COMPLEX #90 tabs naproxen 500 mg tablet See Rx Instructions .Route 01/22/24 04/01/24 Rx .COMPLEX #90 tabs sildenafil 100 mg tablet See Rx Instructions .Route 02/08/24 04/01/24 Rx .COMPLEX #14 tabs omeprazole 40 mg capsule,delayed 40 mg PO DAILY #90 caps 02/20/24 04/01/24 Rx release albuterol sulfate 90 mcg/actuation 2 inh inhalation Q4H PRN shortness 03/08/24 04/01/24 Rx aerosol inhaler of breath or wheezing #8.5 grams levothyroxine 50 mcg tablet See Rx Instructions .Route 03/18/24 04/01/24 Rx .COMPLEX #90 tabs Patient hx anesthesia problems: none Family hx anesthesia problems: none Results Review: All pre-operative results and documents have been reviewed as part of the pre-operative evaluation. [facility] Past Medical History Medical History Adenomatous colon polyp Dyslipidemia GERD (gastroesophageal reflux disease) Hepatitis C antibody test negative (04/11/17) HTN (hypertension) Hyperlipidemia Family History Family History Father Hypertension Family history of elevated blood lipids Mother Hypertension Family history of elevated blood lipids Social History Social History Smoking packs per day: 0.5 Smoking cigarettes per day: 10.0 Years smoked: 8 Smoking pack-years: 4.00 Smoking status: Former smoker Tobacco type: cigarettes Additional smoking assessment comments: quit smoking 37 years ago Alcohol intake: current Drinks per week: 6 Alcohol use details: drinks 3-4 days per week, 3-4 drinkls on those days Substance use: never Substance use type: does not use Lack of Transportation: No Lack of Food: Never True Current Housing: I Have Housing Concerned About Future Housing: No Difficulty Paying Gas/Electric Bills: No Difficulty Paying for Meds: No Currently Unemployed: No Education: High School Diploma/GED Difficulty w/ Childcare or Family Care: No Living arrangements: with family Gender identity (if verbalized by the patient): Male Spiritual care concerns: No Anes - Eval Final PreProcedure Day of Procedure 04/01/24 12:07 Patient weight: normal Heart: regular rate and rhythm Lungs: clear to auscultation Airway: Mallampati scale class II Neurological: alert and oriented Last oral intake: >/= 8 hours ASA classification: III Emergent: no Anesthetic plan: proceed Anesthesia type and monitoring: general GIVS and standard monitoring Results Review: All pre-operative results and documents have been reviewed as part of the pre-operative evaluation. Informed Consent: The patient's anesthetic plan and its attendant risks and benefits were discussed with the patient/family/POA. Questions were solicited and answers provided to the satisfaction of the patient/family/POA.
--- NOTE | 2024-04-01 12:41 | WPDHPUPDATE1 ---
History and Physical Update Update Date/Time: 04/01/24 12:41 History and Physical has been reviewed, including an updated exam of the patient. There are NO changes in the patient's condition. Risks, benefits, and alternatives have been discussed and questions answered. Patient agrees to proceed with procedure.
[2024-04-01 12:59] VITALS: BP 99/71; PULSE 70; RESP 15; O2SAT 99
[2024-04-01 13:09] VITALS: BP 103/69; PULSE 65; RESP 17; O2SAT 100
[2024-04-01 13:19] VITALS: BP 111/76; PULSE 58; RESP 17; O2SAT 100
== END 2024-04-01 13:28 | disposition home or self-care (01) ==
PROVIDERS: PCP Family Medicine; Referring Provider Nurse Practitioner Family; Visit Provider Internal Medicine Gastroenterology
PROC: 0DJD8ZZ Inspection of Lower Intestinal Tract, Via Natural or Artificial Opening Endoscopic (ICD-10-PCS; CPT 45378; principal; 2024-04-01 13:00)
DX: K64.8 Other hemorrhoids (principal); K57.30 Diverticulosis of large intestine without perforation or abscess without bleeding; K21.9 Gastro-esophageal reflux disease without esophagitis; I10 Essential (primary) hypertension; E78.5 Hyperlipidemia, unspecified; Z79.1 Long term (current) use of non-steroidal anti-inflammatories (NSAID); Z79.51 Long term (current) use of inhaled steroids; Z87.891 Personal history of nicotine dependence; Z86.010 Personal history of colon polyps
CPT/HCPCS: 45380; 88305; J2704; J7120

== ENCOUNTER 2024-04-15 10:35 | Outpatient (CLI) | payer OTHER, SELFPAY ==
--- NOTE | ~2024-04-15 | XR_ITS ---
Clinical Indication: Pneumonia follow-up PA and lateral views of the chest: Comparison: 07/26/2015 Findings: The lungs are clear, without evidence of focal consolidation or pleural effusion. Cardiome diastinal silhouette is within normal limits. Bones and soft tissues are unremarkable. Impression: Normal chest. Reviewed, dictated and finalized at [facility]. Impression: Normal chest.
== END 2024-04-15 10:36 | disposition home or self-care (01) ==
PROVIDERS: PCP Family Medicine; Visit Provider Nurse Practitioner
DX: J18.9 Pneumonia, unspecified organism (principal)
CPT/HCPCS: 71046

== ENCOUNTER 2025-01-07 12:35 | Outpatient (CLI) | payer OTHER, SELFPAY ==
--- OUTSIDE RECORDS SUMMARY | 2025-01-07 13:04 | XMS_ITS | Referral Summary ---
Author Organization [facility] Address Formerly [facility], later [facility] [place] [address] Care Team Providers Care Army Helicopter Pilot Name Role Phone Cece Orozco DO Primary Care Provider [phone]- [phone] Allergies Active Allergy Reactions Criticality Noted Date Comments Sulfa (Sulfonamide Antibiotics) Rash Medium 06/24 Medications quinapriL (ACCUPRIL) 10 mg tabletIndicatio ns:hypertension Take 10 mg by mouth every morning Active omeprazole (PriLOSEC) 20 mg capsuleIndicati ons:GERD Take 20 mg by mouth every morning And as needed Active simvastatin (ZOCOR) 10 mg tabletIndicatio ns:hyperlipidem ia Take 10 mg by mouth nightly Active cyclobenzaprine (FLEXERIL) 10 mg tablet TAKE 1 TABLET BY MOUTH THREE TIMES DAILY NEEDED FOR MUSCLE SPASM 10/26/[address] (VOLTAREN) 75 mg EC tablet Take 75 mg by mouth 2 (two) times a day as needed 11/30/2020 Active sildenafiL (VIAGRA) 100 mg tablet TAKE ONE TABLET BY MOUTH 30 MINUTES TO 4 HOURS BEFORE SEXUAL ACTIVITY NEEDED 12/28/2020 Active oxyCODONE (ROXICODONE) 5 mg immediate release tabletIndicatio ns:Pain TAKE ONE TO TWO TABLETS EVERY 4 TO 6 HOURS PRN PAIN 40 tablet 02/04/2021 Active linac-xh1-hfc-e iq-md9-pdo-astx 1000-130(40-80) mg capsule Take by mouth Activ e Active Problems Problem Noted Date Diagnosed Date 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 2-3 times a week 01/28/2021 Q2: How many drinks containi ng alcohol do you have on a typical day when you are drinking? 3 or 4 01/28/2021 Q3: How often do you have si x or more drinks on one occasion? 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 Gender Identity Male 02/09/2021 11:37 AM CDT Sexual Orientation Straight 02/09/2021 11 :37 AM CDT Last Filed Vital Signs Vital Sign Reading Time Taken Comments Blood Pressure 121/74 02/08/2021 10:40 AM CDT Pulse 59 02/08/2021 10:40 AM CDT Temperature 36.3 C (97.3 F) 02/08/2021 10:40 AM CDT Respiratory Rate 14 02/08/2021 10:4 0 AM CDT Oxygen Saturation 94% 02/08/2021 10: 40 AM CDT Inhaled Oxygen Concentration - - Weight 95.2 kg (209 lb 14.4 oz) 02/08/2021 6:15 AM CDT Height 188 cm (6' 2) 02/08/2021 6:15 AM CDT Body Mass Index 26.95 02/08/2021 6:15 AM CDT Plan of Treatment Not on file Insurance TRAM OPEN ACCESS * Guarantor: MILTON LAGUNA Account Type Relation to Patient Date of Phone Billing Address Workers Comp Employer [employer] Care Teams Army Helicopter Pilot Relationship Specialty Start Date End Date Cece Orozco DO PCP - General Family Medicine 06/22/20
--- OUTSIDE RECORDS SUMMARY | 2025-01-07 13:05 | XMS_ITS | Continuity of Care Document ---
Author Name [facility] Organization [facility] Care Team Providers Care Machine Shorthand Reporter Name Role Phone [facility] Unavailable Unavailable Problems Combined list of problems from [facility] and [facility] facilities. It does not include entries that were removed or entered in error. Problem Status Onset Date Problem Type Date of Resolution Comments Source Benign essential hypertension Active Condition [facility] Exposure to potentially hazardous substance Active Condition [facility] History of alcohol abuse Active Condition [facility] Hyperlipidemia Active Condition [facility] Hypothyroidism Active Condition [facility] Impacted cerumen in right ear Active Condition [facility] Wrist pain Active Condition [facility] Alcohol abuse Inactive Condition 06/26/2017 [facility] Diagnosis: ICD-10-CM M25.532 Pain in left wrist Active Diagnosis [facility] Diagnosis: ICD-10-CM E03.9 Hypothyroidism, unspecified Active Diagnosis [facility] Medications Combined list of outpatient medications from [facility] facilities.Medications provided include 1) outpatient medications from the last 15 months, and 2) patient-reported medications. Medication Details Route Status Patient Instructions Prescription Expires Prescription Number Last Dispense Date Ordering Provider Order Date Order Qty Source FAMOTIDINE 40MG TAB TAKE ONE TABLET BY MOUTH TWICE A DAY ORAL ACTIVE CLOUD,A RMIDA A 2023 [facility] FISH OIL 1000MG (500MG DHA/EPA) CAP,ORAL TAKE 1 CAPSULE BY MOUTH ONCE A DAY ORAL ACTIVE PROUHET,R HEYDI M 2015 [facility] FLAXSEED OIL CAP TAKE 1 CAPSULE BY MOUTH ONCE A DAY ORAL ACTIVE PROUHET,R HEYDI M 2015 [facility] LEVOTHYROXI NE NA 75MCG TAB (SYNTHROID) TAKE ONE TABLET BY MOUTH EVERY MORNING BEFORE A MEAL ORAL ACTIVE CLOUD,A RMIDA A 2024 [facility] LISINOPRIL 20MG TAB TAKE ONE-HALF TABLET BY MOUTH ONCE A DAY ORAL ACTIVE CLOUD,A RMIDA A 2023 [facility] OMEPRAZOLE 40MG CAP,EC TAKE 1 CAPSULE BY MOUTH EVERY MORNING BEFORE A MEAL ORAL ACTIVE COLUD,A RMIDA A 2023 [facility] SIMVASTATIN 20MG TAB TAKE ONE-HALF TABLET BY MOUTH EVERY EVENING ORAL ACTIVE PROUHET,R HEYDI M 2015 [facility] Allergies, Adverse Reactions, Alerts Combined list of allergies from [facility] and [facility] facilities. It does not include entries that were removed or entered in error. Substance Category Reaction Severity Reaction type Status Date Reported Comments Source SULFA DRUGS Propensity to adverse reactions to drug (finding) Urticaria, Eruption active 6 [facility] Immunizations Combined list of available immunizations from the [facility] and [facility] facilities. Immunization Series Date Given Administered By Site Reaction Lot Number CVX Code Drug Technologist Infectious Disease Status Comments Source COVID-19 (PFIZER), MRNA, LNP-S, PF, LOY-SUCROSE, 30 MCG/0.3 ML (AGES 12+ YEARS) 7 2023 309 complet ed HISTORICA L INFORMATI ON - [facility] INFLU[facility], HIGH-DOSE, TRIVALENT, PF 1 2023 135 complet ed HISTORICA L INFORMATI ON - FROM OTHER [facility] N RSV, RECOMBINANT, PROTEIN SUBUNIT RSVPREF, ADJUVANT RECONSTITUTED , 0.5 ML, PF 1 2023 303 complet ed HISTORICA L INFORMATI ON - FROM OTHER [facility] PNEUMOCOCCAL POLYSACCHARID E PPV23 2 2022 33 complet ed HISTORICA L INFORMATI ON - FROM OTHER [facility] COVID-19 (PFIZER), MRNA, LNP-S, PF, LOY-SUCROSE, 30 MCG/0.3 ML (AGES 12+ YEARS) 6 2022 309 complet ed HISTORICA L INFORMATI ON - FROM OTHER [facility], [facility] INFLUENZA VACCINE, QUADRIVALENT, ADJUVANTED 4 2022 205 complet ed HISTORICA L INFORMATI ON - FROM OTHER [facility], [facility] N COVID-19 ([facility]), MRNA, LNP-S, BIVALENT, PF, 30 MCG/0.3 ML DOSE 5 2021 300 complet ed HISTORICA L INFORMATI ON - FROM OTHER REGISTRY, [facility] INFLUENZA, HIGH-DOSE, QUADRIVALENT 3 2021 197 complet ed HISTORICA L INFORMATI ON - FROM OTHER [facility], [facility] PNEUMOCOCCAL CONJUGATE PCV 13 1 2021 133 complet ed HISTORICA L INFORMATI ON - FROM OTHER [facility], [facility] N COVID-19 ([facility]), MRNA, LNP-S, PF, 30 MCG/0.3 ML DOSE, LOY-SUCROSE (AGES 12+ YEARS) 4 2021 217 complet ed HISTORICA L INFORMATI ON - FROM OTHER [facility], [facility] N ZOSTER RECOMBINANT 2 2021 187 complet ed HISTORICA L INFORMATI ON - FROM OTHER REGISTRY, [facility] ([facility]), MRNA, LNP-S, PF, 30 MCG/0.3 ML DOSE 3 2020 208 complet ed HISTORICA L INFORMATI ON - FROM OTHER REGISTRY, [facility] N ZOSTER RECOMBINANT 1 2020 187 complet ed HISTORICA L INFORMATI ON - FROM OTHER REGISTRY, [facility] N INFLUENZA, INJECTABLE, QUADRIVALENT, PRESERVATIVE FREE 2 2020 150 complet ed HISTORICA L INFORMATI ON - FROM OTHER REGISTRY, [facility] ([facility]), MRNA, LNP-S, PF, 30 MCG/0.3 ML DOSE 2 2020 208 complet ed [facility] COVID-19 (PFIZER), MRNA, LNP-S, PF, 30 MCG/0.3 ML DOSE 1 2020 208 complet ed [facility] N TDAP 2019 115 complet ed [facility] N INFLUENZA, UNSPECIFIED FORMULATION 2019 88 complet ed [facility] N PNEUMOCOCCAL POLYSACCHARID E PPV23 [address] [facility] INFLUENZA, UNSPECIFIED FORMULATION 2018 88 complet ed per [facility] N INFLUENZA, INJECTABLE, QUADRIVALENT, PRESERVATIVE FREE 1 2017 150 complet ed HISTORICA L INFORMATI ON - FROM OTHER REGISTRY, [facility] N INFLUENZA, UNSPECIFIED FORMULATION 2017 88 complet ed per family [facility] INFLUENZA, UNSPECIFIED FORMULATION 2016 88 complet ed per [facility] N INFLUENZA, UNSPECIFIED FORMULATION 2015 88 complet ed [facility] Vital Signs Combined list of inpatient and outpatient Vital Signs from Department of Defense and Veterans Affairs, ranging from 12 months to all on record, depending upon the facility. Vital Sign Value Date Comments Source SYSTOLIC BLOOD PRESSURE 144 08/02/2024 09:00:51 [facility] DIASTOLIC BLOOD PRESSURE 81 08/02/2024 09:00:51 [facility] PULSE OXIMETRY 96 08/02/2024 09:00:51 S Braulio [facility] WEIGHT 222 08/02/2024 [facility]:00[facility] BMI 28 kg/m2 08/02/2024 09:00:51 [facility] PAIN 0 08/02/2024 09:00:51 [facility] HEIGHT 75 08/02/2024 09:00:51 [facility] TEMPERATURE 98 08/02/2024 09:00:51 [facility] PULSE 75 08/02/2024 09:00:51 [facility] RESPIRATION 18 08/02/2024 09:00:51 Jenna [facility] Encounters Combined list of: 1) Encounters from [facility] of [facility] facilities going backup to the last 18 months, not all VA inpatient encounters are included; 2) Encounters from the [facility] facilities going backup to 280 months. Location Location Details Encounter Type Encounter Number Reason For Visit Attending Provider ADM Date DC Date Status Disposition Source [facility] Outpatient Encounter [id number] 07/29 [facility] OFFICE O/P EST MOD 30 MIN [id number] Diagnos is: ICD-10- CM E03.9 Hypothy roidism , unspeci fied CLOUD,AR MIDA A 08/03 [facility] En[facility] [id number] 04/22 [facility] OFFICE O/P EST MOD 30 MIN [id number] Diagnos is: ICD-10- CM M25.532 Pain in left wrist MAYDEN,CHR ISTINE M 08/02 [facility] Outpatient Encounter [id number] 09/12 [facility] Social History Combined list of available smoking, tobacco, and other social history from [facility] and [facility] facilities. Social History Type Response Date Comment Sourc e Tobacco smoking status NHIS VA-TOBACCO USE FORMER CIGARETTES 08/02/2024 [facility] History of tobacco use VA-TOBACCO NEVER USED OTHER TYPE 08/02/2024 [facility] History of tobacco use VA-TOBACCO FORMER USER 08/03/2023 [facility] History of tobacco use VA-TOBACCO NEVER USED 08/03/2022 [facility] History of tobacco use VA-TOBACCO NEVER USED 07/09/2021 [facility] History of tobacco use VA-TOBACCO FORMER USER 07/09/2020 [facility] History of tobacco use VA-TOBACCO QUIT 15 YRS OR MORE 06/25/2019 [facility] History of tobacco use VA-TOBACCO FORMER USER 06/20/2018 [facility] History of tobacco use QUIT TOBACCO >7 YEARS AGO 06/26/2017 [facility] History of tobacco use LIFETIME NON-USER OF TOBACCO 06/27/2016 Jenna [facility]
--- OUTSIDE RECORDS SUMMARY | 2025-01-07 13:05 | XMS_ITS | Continuity of Care Document ---
Author Organization [facility] Address [address] [place] [address] Phone Care Team Providers Care Airflight Attendants Supervisor Name Role Phone Krueger OD, Rico Unavailable Unavailable Procedures Procedure Date Eye Exam & Treatment Refraction BF Polycarb Sphcyl [place] To +/-4d .12-2d BF Polycarb Sph [place] To +/- 4d 010 Anti-reflective Coating Miscellaneous Vision Service - Supplies Vision Svcs Frames Purchases Tint Photochromatic, Polycarb 0 Lens-Index 1.54-1.79 Glass Progressive Lens, Hi Index Miscellaneous Vision Service - Supplies Advance Directives Directive Yes / No Effective Date File Name No Information Encounters Encounter Description Practice Location Reason(s) For Visit Diagnoses Date Provider Providers Copied on Encounter [facility], [address] [place] [address] [address], [place], [place], [id number], [place] tel:[phone] [facility] No Information 7-201 0 Krueger OD Rico. [address] , [address], [place], [address], [place]. tel:[phone] [facility], [address], [place], [place], [address], [place] tel:[phone] [facility] No Information 7-201 0 [facility] . [address], [address], [place], [place], [address], [place]. tel:[phone] Referring Provider: Rico Almeida, [address] [facility] [address], [place], [address]. tel:[phone] Family History Family Member Type Diagnosis Age At Onset No Information Payers Payer name Insurance type Covered green party ID Authortya diegofranco(s) [facility] [id number] Social History Type Description Quantity Date Captured Comments Sex Male Smoking Status No Information Chief Complaint And Reason For Visit No Information Reason For Referral Reason For Referral No Information History Of Present Illness Encounter Date Complaint History Of Prese nt Illness No Information Functional Status Date Functional Assessmen t No Information Instructions Date Instruction Additional Infor mation No Information Assessments Type Assessment Date No Information Patient Care Teams Name Effective Dates (start - stop) Status Members No Information
--- OUTSIDE RECORDS SUMMARY | 2025-01-07 13:05 | XMS_ITS | Clinical Summary ---
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 Overview (01/06/2021): Added automatically from request for surgery [id number] Surgical History Surgery Date Site/Laterality Comments COLONOSCOPY FINGER FRACTURE SURGERY Left Index finger/ pin Medical History Medical History Date Comments 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 Added automatica lly from request for surgery [id number] HTN (hypertension) HLD (hyperlipidemia) GERD (gastroesophageal reflu x disease) well controlled Family History Medical History Relation Name Comments Anesthesia problems Neg Hx Social History Tobacco Use Types Packs/Day Years [...] on file 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
[2025-01-10 12:40] LABS: Lyme Disease Ab (IgM), Blot NEGATIVE (NEGATIVE); Lyme Disease Ab(IgG), Blot NEGATIVE (NEGATIVE)
== END 2025-01-07 12:36 | disposition home or self-care (01) ==
PROVIDERS: PCP Family Medicine; Visit Provider Family Medicine
DX: L98.9 Disorder of the skin and subcutaneous tissue, unspecified (principal); W57.XXXA Bitten or stung by nonvenomous insect and other nonvenomous arthropods, initial encounter
CPT/HCPCS: 36415; 86617